=== PATIENT | female | born 1985 ===

== ENCOUNTER 2020-10-21 09:15 | Outpatient (RCR) | payer OTHER, SELFPAY ==
--- NOTE | 2020-10-08 17:51 | HO.PS.ADMBH ---
HPI Chief Complaint: depression Sources of Information: patient interviewed and chart reviewed HPI Narrative: Patient is a 35-year-old female who presents to [facility] as a step-down from recent psychiatric admission for depression and alcohol use disorder. Patient reports that she admitted herself to the hospital in early August as she recognizes that she was unable to stop drinking on her own and that the drinking was contributing to her worsening depression and anxiety. During her admission she was started on Prozac 10 mg and Antabuse. She has been tolerating both medications and has not had any alcohol since her admission in August. She does acknowledge occasional cravings when she is increasingly stressed but finds that knowing she will get physically ill if she drinks has been helpful in ensuring she does not drink. Patient reports that she has noted an increase in energy and motivation and overall improved mood since she was discharged from the hospital. Sleep is somewhat of an issue for patient and she was given prescription for trazodone but she finds it too sedating so she avoids taking. Patient noted to be somewhat overly inclusive, excessively talking, though completely appropriate and pleasant. This flex o writer operator asked about hypomania symptoms which client denies, ?I am just a talker?. Patient reviewed her lab work with this flex o writer operator from the hospital, she reports her PCP will be continuing her medications and there is already a lab order in place to recheck liver function, thyroid, and vitamin-D. Patient is very motivated to maintain sobriety and is looking for to acquiring coping skills from [facility]. Past Psychiatric History: As mentioned in HPI 1 psychiatric admission for depression and alcohol detox [facility] Narrative: Patient reports history of asthma Being followed by PCP for elevated LFTs and thyroid, lab work to be completed in the near future Social History: Lives with her 2 children Identifies her family as supportive Substance History: As reported in HPI Meds/Allergies Allergies Allergies Allergy/AdvReac Type Severity Reaction Status Date / Time No Known Allergies Allergy Verified 10/08/20 17:46 Mental Status Exam Mental Status Exam Patient Appearance: Well Grooomed and Appropriate Patient Orientation: Person, Place, Time and Situation Level of Consciousness: Awake, Appropriate and Alert Patient Behavior: Appropriate and Talkative Mood Description: Happy and Expansive Affect Description: Happy and Expansive Ability to Follow Directions: Excellent Speech Pattern: Clear and Appropriate Hallucinations: None Delusions: Not Present Thought Process: Goal Oriented Thought Content: positive for Circumstantial and positive for Goal Oriented Depressive Symptoms: Difficulty Sleeping and Feelings of Guilt Judgement: Good Assessment & Plan Assessment & Plan (1) Major depressive disorder, recurrent episode, severe: Status: Acute Code(s): F33.2 - Major depressive disorder, recurrent severe without psychotic features Assessment and Plan: -increase Prozac to 20 mg daily -encouraged patient to monitor for signs of hypomania including decreased need for sleep, excessive energy, etc. patient verbalized understanding. Encouraged to discontinue Prozac should she note any of these symptoms over the weekend -patient to use low-dose melatonin to assist with sleep as this has been helpful in the past (2) Alcohol use disorder, severe, dependence: Status: Acute Code(s): F10.20 - Alcohol dependence, uncomplicated Assessment and Plan: -patient currently on Antabuse -PCP following labs Certification I certify that partial hospital treatment is medically necessary due to the symptoms and problems resulting from the patient's mental illness and the failure to treat the patient at the partial hospital level of care would likely result in the patient requiring inpatient psychiatric care which could not be prevented at a less intensive level of care. Telehealth Telehealth Location of provider rendering services: practice address Location of patient: address on file Patient Identification confirmed using: Name, : Yes Telehealth method: video Patient verbally consented to treatment: Yes Patient verbally consented to billing insurance company: Yes Time spent with patient (mins): 30
--- NOTE | 2020-10-11 14:23 | PC.NURSE ---
Clients case opened in treatment team today. I phoned the client and we discussed her treatment plan. She reports that she feels good about the program and finds group helpful. We discussed her schedule and discharge plans. We agreed that her discharge date will be Oct 21, 2020 and she will call [facility] for an appointment with a therapist and prescriber. We agreed if she can not get an appointment I will call [facility] the week of her discharge to set up appointments.
--- NOTE | 2020-10-13 21:33 | P.PNPSP_ITS ---
Subjective Subjective Date of Service: 10/14/20 Reason For Visit: depression Interim History: Geovanna reports improve mood in that she feels less overwhelmed, less depressed and increasingly hopeful about her recovery. She reports improved sleep in that she is able to sleep for longer periods of time. She reports appetite as usual. She reports she has not had a drink since she was discharged from in unit and admitted to this program. She reports at times having some craving to use but able to manage them. She denies suicidal or homicidal ideation. She is taking medications as prescribed. She denies side effects. She reports PHP groups have been helpful. Medication Compliance: Yes Side effects from medications: No Attending Groups: Yes Review of Systems Acute medical concerns: No Medical Review of Systems: unchanged Review of Systems Constitutional: Reports no additional constitutional complaints Cardiovascular: Reports no additional cardiovascular complaints Respiratory: Reports no additional respiratory complaints Mental Status Exam Mental Status Exam Patient Appearance: Well Grooomed Patient Orientation: Person, Place, Time and Situation Level of Consciousness: Awake Patient Behavior: Appropriate and Cooperative Mood Description: Euphoric ( less depressed ) Affect Description: Appropriate (congruent with reported mood) Patient Cognition Impaired: No Ability to Follow Directions: Excellent Speech Pattern: Clear, Appropriate, Spontaneous Speech (regular rate/rhythm) and Coherent Memory Description: Intact (grossly intact to conversational testing) Hallucinations: None Delusions: Not Present Thought Process: Goal Oriented and Linear Thought Content: positive for Logical (no signs of psychosis, increasingly future oriented) Depressive Symptoms: Feelings of Guilt and Low Self Esteem Judgement and Insight: fair x 2. Assessment & Plan Assessment & Plan (1) Alcohol use disorder, severe, dependence: Status: Acute Code(s): F10.20 - Alcohol dependence, uncomplicated Assessment and Plan: 1.continue psychoeducation 2. continue antibuse 3. NO medication changes at this time (2) Major depressive disorder, recurrent episode, severe: Status: Acute Code(s): F33.2 - Major depressive disorder, recurrent severe without psychotic features Assessment and Plan: 1. Continue current medications. Patient educated on: diagnosis, medication risk/benefits, substance abuse and therapeutic strategies Informed Consent: understands Reason for contiued partial hosp. stay Substantial Risk for: harm to self Certification I certify that partial hospital treatment is medically necessary due to the symptoms and problems resulting from the patient's mental illness and the failure to treat the patient at the partial hospital level of care would likely result in the patient requiring inpatient psychiatric care which could not be prevented at a less intensive level of care. Greater than 50% of the session was spent on counseling and/or coordination of c are Discharge Plan Discharge Attending provider: Joshua Evans Telehealth Telehealth Location of provider rendering services: practice address Location of patient: address on file Patient Identification confirmed using: Name, : Yes Telehealth method: video Patient verbally consented to treatment: Yes Patient verbally consented to billing insurance company: Yes Patient informed of any privacy concerns related to visit: Yes Time spent with patient (mins): 15
--- NOTE | 2020-10-18 15:25 | HO.PHPPROGNO ---
Subjective Subjective Date of Service: 10/18/20 Reason For Visit: depression Interim History: Geovanna reports yesterday she felt restless, anxious, poor concentration. She reports this morning she was slightly better, less anxious. She denies SI/HI. She reports overall improvement in symptoms of depression. She denies alcohol use, continues to take antibuse. She reports fair sleep/appetite, We discussed adding vistaril as needed, however, as pt less restless this morning asked to wait before adding new medications. Review of Systems Review of Systems Yes all other systems are reviewed and are negative Mental Status Exam Mental Status Exam Patient Appearance: Well Grooomed Patient Orientation: Person, Place, Time and Situation Level of Consciousness: Awake Patient Behavior: Appropriate and Cooperative Mood Description: Euphoric ( less depressed ) Affect Description: Appropriate (congruent with reported mood) Patient Cognition Impaired: No Ability to Follow Directions: Excellent Speech Pattern: Clear, Appropriate, Spontaneous Speech (regular rate/rhythm) and Coherent Memory Description: Intact (grossly intact to conversational testing) Assessment & Plan Assessment & Plan (1) Alcohol use disorder, severe, dependence: Status: Acute Code(s): F10.20 - Alcohol dependence, uncomplicated Assessment and Plan: 1.continue psychoeducation 2. continue antibuse 3. NO medication changes at this time (2) Major depressive disorder, recurrent episode, severe: Status: Acute Code(s): F33.2 - Major depressive disorder, recurrent severe without psychotic features Assessment and Plan: 1. Continue current medications. Certification I certify that partial hospital treatment is medically necessary due to the symptoms and problems resulting from the patient's mental illness and the failure to treat the patient at the partial hospital level of care would likely result in the patient requiring inpatient psychiatric care which could not be prevented at a less intensive level of care. Greater than 50% of the session was spent on counseling and/or coordination of care Discharge Plan Discharge Attending provider: Joshua Evans
[2020-10-19 12:30] VITALS: BMI 27.3
== END 2020-10-21 23:55 | disposition home or self-care (01) ==
LOC: HO.PHPA 09:15
PROVIDERS: Visit Provider Psychiatry & Neurology Psychiatry
DX: F33.2 Major depressive disorder, recurrent severe without psychotic features (principal); F10.20 Alcohol dependence, uncomplicated
CPT/HCPCS: 90791; 90853; 99203; 99212